=== PATIENT | male | born 1950 | race Caucasian/White ===

== ENCOUNTER 2016-12-11 01:15 | Emergency (ER) | payer SELFPAY ==
--- NOTE | 2016-12-11 02:25 | ER Document Report ---
ED Oral Problem - General Mode of Arrival: Ambulatory Information source: Patient TRAVEL OUTSIDE OF THE [place] IN LAST 30 DAYS: No - General Chief Complaint: Toothache Stated Complaint: POSSIBLE ABSCESS Time Seen by Provider: 12/11/16 01:54 Notes: Patient is a 66-year-old male that presents to the emergency department today with complaints of left-sided facial swelling. Patient states he believes he has an abscess to his had one in the past. Patient states that her sinuses swelling 3 days ago. Patient denies any shortness of breath, or difficulty handling his secretions. (CARLTON PEDROZA) - Related Data Allergies/Adverse Reactions: No Known Allergies Allergy (Unverified 12/11/16 01:22) Past Medical History - General Information source: Patient - Social History Smoking Status: Never Smoker Cigarette use (# per day): No Frequency of alcohol use: None Drug Abuse: None Lives with: Family Family History: Reviewed & Not Pertinent Patient has suicidal ideation: No Patient has homicidal ideation: No - Past Medical History Cardiac Medical History: Reports: Hx Atrial Fibrillation, Hx Hypertension Surgical Hx: Negative Review of Systems - Review of Systems Constitutional: No symptoms reported EENT: See HPI, Mouth pain, Mouth swelling Cardiovascular: No symptoms reported Respiratory: denies: Short of breath Gastrointestinal: No symptoms reported Genitourinary: No symptoms reported Male Genitourinary: No symptoms reported Musculoskeletal: No symptoms reported Skin: No symptoms reported Hematologic/Lymphatic: No symptoms reported Neurological/Psychological: No symptoms reported -: Yes All other systems reviewed and negative Physical Exam - Vital signs Vitals: Temp Pulse Resp BP Pulse Ox 98.1 F 87 18 161/90 H 96 12/11/16 01:19 12/11/16 01:19 12/11/16 01:19 12/11/16 01:19 12/11/16 01:19 - Notes Notes: Physical Exam: General: Alert, appears well. HEENT: Normocephalic. Atraumatic. PERRL. Extraocular movements intact. Oropharynx clear. Left-sided facial swelling. No trismus or stridor. Patient is able to handle secretions appropriately. Airway is patent. Neck: Supple. Non-tender. Respiratory: No respiratory distress. Clear and equal breath sounds bilaterally. Cardiovascular: Regular rate and rhythm. Abdominal: Obese. Non-tender. No distension. Normal Bowel Sounds. Back: Non-tender. No deformity or step off. Extremities: Moves all four extremities. Upper extremities: Normal inspection. Normal ROM. Lower extremities: Normal inspection. No edema. Normal ROM. Neurological: Normal cognition. AAOx4. Normal speech. Psychological: Normal affect. Normal Mood. Skin: Warm. Dry. Normal color. (CARLTON PEDROZA) Course - Re-evaluation Re-evalutation: 12/11/16 02:26 Patient presents emergency department with swelling to the left side of his face onset Tuesday. He makes a point to say he does not have any tooth pain. He has most of his teeth are rotten on the upper and lower side on the left. He describes a difficulty breathing or swallowing. No fevers chills trismus stridor or drooling. He says he lives here but he is from the [place] and his medications are prescribed by the including Coumadin for A. fib high blood pressure Bumex and spironolactone. On examination he is awake alert and afebrile his upper and lower teeth diffusely are decayed but no associated periapical abscess swelling or drainage no submandibular or uvular swelling tongue is midline no trismus stridor or drooling of posterior pharyngeal swelling. He has swelling to the left side of his face and in the bag underneath his eye the excess skin is a little inflamed the eye itself is not involved extraocular muscles intact. Patient is going to have a CT IV with and without of the facial area to further ascertain the facial swelling. 12/11/16 03:49 CT of the face shows no evidence of swelling or abscess. Given the fact that there is absence of an abscess and he has severe dental decay it is likely due to the dental caries. I am going to go ahead and start him on Pen-Vee K given a local primary care physician and a list of local dentist. And discussed reasons for ED return sooner (ANTHONY RUCKER) - Vital Signs Vital signs: Temp Pulse Resp BP Pulse Ox 98.8 F 81 17 155/84 H 96 12/11/16 03:59 12/11/16 03:59 12/11/16 03:59 12/11/16 03:59 12/11/16 03:59 Discharge - Discharge Clinical Impression: facial swelling no abscess, Dental caries Condition: Stable Disposition: HOME, SELF-CARE Instructions: [facility], Clindamycin ([facility]) Additional Instructions: Dental caries with mild facial swelling. NO ABSCESS You have an infection, perhaps an abscess (pus formation) of the gum around one of your teeth, which is probably decayed. Severe swelling or drainage around a tooth usually means a deep dental abscess which usually requires evaluation and treatment by a dentist or oral surgeon. Antibiotics may be prescribed while awaiting dental treatment. If you develop high fever with chills, worsening pain, or increasing swelling in the area, see a dentist or oral surgeon immediately or return to the Emergency Department immediately. Prescriptions: Penicillin V Potassium [Penicillin Vk 250 mg Tablet] 250 mg PO Q6 #40 tablet Referrals: [facility] [Provider Group] - Follow up in 3-5 days (You have also been given a list of all the local dentist in the area for follow-up return for increasing worsening or new symptoms) Scribe Attestation: 12/11/16 03:49 I personally performed the services described in the documentation reviewed the documentation recorded by my scribe in my presence and it accurately and completely records my words and actions (ANTHONY RUCKER)
--- NOTE | 2016-12-11 03:44 | RADIOLOGY REPORT (SQ) ---
EXAM DESCRIPTION: CT FACIAL AREA WITH COMPLETED DATE/TIME: 12/11/2016 3:02 am REASON FOR STUDY: facial swelling ? abscess COMPARISON: None. TECHNIQUE: Post contrast images through the facial bones and orbits windowed for bone and soft tissu e. Additional coronal and sagittal reconstructed images reviewed. All images stored on PACS. All CT scanners at this facility use dose modulation, iterative reconstruction, and/or weight based d osing when appropriate to reduce radiation dose to as low as reasonably achievable (ALARA). [facility]: Dose Right [facility]: CareDose [facility]: Dose Right [facility]: Teradose 4D [facility]: [employer] CONTRAST TYPE AND DOSE: contrast/concentration: Isovue 370.00 mg/ml; Total Contrast Delivered: 75.0 ml; Total Saline Delivered: 55.0 ml RENAL FUNCTION: Cleared with clinician due to medical circumstances. RADIATION DOSE: Up-to-date CT equipment and radiation dose reduction techniques were employed. CTDIv ol: 30.4 mGy. DLP: 606 mGy-cm. . LIMITATIONS: None. FINDINGS: FACIAL BONES: No fracture or bone lesion. ORBITS: Intact. No fracture. Symmetric intact globes and retroorbital soft tissues. PARANASAL SINUSES: 2.1 cm left maxillary retention cyst -mucocele. SOFT TISSUES: Mild bilateral cervical, suprahyoid/ submandibular lymphadenopathy includes a left ante rior cervical lymph node measuring 1.7 x 0.8 cm, image 19 of series 4. INFERIOR BRAIN: Limited view. No acute findings. OTHER: Mild disc desiccation spondylosis. Atherosclerosis. Prominent right jugular bulb, normal merlyn iant, at the mormonism bone. IMPRESSION: Mild cervical lymphadenopathy. Otherwise, no acute findings. TECHNICAL DOCUMENTATION: JOB ID: [id number] Quality ID # [id number]: Final reports with documentation of one or more dose reduction techniques (e.g., Au tomated exposure control, adjustment of the mA and/or kV according to patient size, use of iterative reconstruction technique) 2010 [employer]- All Rights Reserved
[2016-12-11] MEDS ORDERED: PENICILLIN V POTASSIUM 250 MG TABLET PO ONE (03:50)
[2016-12-11 04:10] VITALS: BP 155/84
== END 2016-12-11 04:09 | disposition home or self-care (01) ==
LOC: ER 01:15
DX: K02.9 Dental caries, unspecified (principal); R22.0 Localized swelling, mass and lump, head; I48.91 Unspecified atrial fibrillation; I10 Essential (primary) hypertension
CPT/HCPCS: 70487; 99283